=== PATIENT | female | born 1965 | race Caucasian/White ===

== ENCOUNTER 2021-05-24 16:47 | Emergency (ER) | payer BC ==
--- NOTE | 2021-05-24 20:07 | CT ---
Head CT Technique: Multiple axial sections through the brain were obtained. Intravenous contrast was not utilized. Reconstructed coronal and sagittal images were obtained. Comparison: No prior intracranial imaging is available. Findings: Ventricles along with basal cisterns and sulci over the convexities are within normal limits for the patient's age. No abnormal parenchymal densities are seen. No evidence of intracranial hemorrhage is seen. No midline shift or mass-effect is seen. Bone window settings were reviewed. Visualized paranasal sinuses and mastoid sinuses appear to be clear. No acute calvarial abnormality is appreciated. Impression: 1. Nothing acute is seen on noncontrast head CT study. Diagnostic code #1
[2021-05-24] MEDS ORDERED: predniSONE 20 MG Tab PO ONE (23:00)
--- NOTE | 2021-05-24 23:06 | EDM.PDOC ---
ED HPI GENERAL MEDICAL PROBLEM - General Chief Complaint: ENT Problem Stated Complaint: SWOLLEN RT SIDE OF FACE/EAR PAIN Time Seen by Provider: 05/24/21 22:04 Source of Information: Reports: Patient History Limitations: Reports: No Limitations - History of Present Illness INITIAL COMMENTS - FREE TEXT/NARRATIVE: The patient presents with right sided facial droop. 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 She cannot blink very well with her right eye. She also has pain to the right jaw and swelling. She has been dealing with vertigo since about February. She has been to chiropractor and antivert. She has no other symptoms such as numbness or weakness in her arms or legs. Onset: Gradual Duration: Hour(s): Location: Reports: Face Quality: Reports: Ache Severity: Mild Improves with: Reports: None Worsens with: Reports: None Associated Symptoms: Reports: No Other Symptoms right ear Pain Score (Numeric/FACES): 3 - Related Data Allergies Allergy/AdvReac Type Severity Reaction Status Date / Time Penicillins Allergy Swelling Verified 05/24/21 18:00 and rash Sulfa (Sulfonamide Allergy Rash Verified 05/24/21 18:00 Antibiotics) Home Meds: Home Meds Albuterol Sulfate [Albuterol Sulfate HFA] 2 puff INH Q4H PRN 04/15/14 [History] Aspirin [Ravi Chewable] 1 tab.chew PO QAM 04/15/14 [History] Calcium Carb/Vitamin D3/Vit K1 [Calcium + D Soft Chewable Tab] 1 tab.chew PO DAILY 04/15/14 [History] Cetirizine HCl [Zyrtec] 10 mg PO DAILY PRN 04/15/14 [History] Cholecalciferol (Vitamin D3) [Vitamin D3] 4,000 unit PO QAM 04/15/14 [History] Krill Oil/[place]-3/Dha/Epa [[place]-3 Krill Oil Softgel] 665 mg PO QAM 04/15/14 [History] Lysine 500 mg PO DAILY 04/15/14 [History] Pantoprazole Sodium 1 tab PO QAM 04/15/14 [History] Ubidecarenone [Coq-10] 200 mg PO QAM 04/15/14 [History] predniSONE [Prednisone] 60 mg PO DAILY #21 tablet 05/24/21 [Rx] Social & Family History - Tobacco Use Tobacco Use Status *Q: Never Tobacco User - Recreational Drug Use Recreational Drug Use: No ED ROS ENT - Review of Systems Review Of Systems: See Below Constitutional: Reports: No Symptoms HEENT: Reports: Other (right jaw pain and right sided facial droop) Cardiovascular: Reports: No Symptoms Endocrine: Reports: No Symptoms GI/Abdominal: Reports: No Symptoms : Reports: No Symptoms Musculoskeletal: Reports: No Symptoms ED EXAM, ENT - Physical Exam Exam: See Below Exam Limited By: No Limitations General Appearance: Alert, No Apparent Distress Ears: Normal External Exam Nose: Normal Inspection Mouth/Throat: Normal Inspection Head: Other (right sided facial droop. She cannot move her forehead either. There is some swelling of he right submandibular gland) Neck: Normal Inspection, Supple, Non-Tender Respiratory/Chest: No Respiratory Distress, Lungs Clear, Normal Breath Sounds Cardiovascular: Regular Rate, Rhythm, No Edema, No Murmur GI/Abdominal: Soft, Non-Tender, No Organomegaly, No Mass Extremities: Normal Inspection Neurological: Alert, Oriented, Other (right sided facial weakness and numbness. She can only move her right forehead slightly. She has no numbness or weakness to her arms or legs.) Course - Vital Signs Last Recorded V/S: Last Vital Signs Temp 97.6 F 05/24/21 17:56 Pulse 64 05/24/21 17:56 Resp 18 05/24/21 17:56 BP 157/81 H 05/24/21 17:56 Pulse Ox 100 05/24/21 17:56 - Orders/Labs/Meds Meds: Medications Discontinued Medications Generic Name Dose Route Start Last Admin Trade Name Ivelisse PRRodolfo Reason Stop Dose Admin Prednisone 60 mg 05/24/21 23:00 Prednisone 20 Mg Tab PO 05/24/21 23:01 ONETIME ONE - Re-Assessments/Exams Free Text/Narrative Re-Assessment/Exam: 05/24/21 23:06 The ER was very busy. A CT was done and there was no sign of bleed. 05/24/21 23:07 She has Palacios's Palsy. I will give her a dose of prednisone and a prescription for more. I will also give her an eye patch and take some lemon drops. Departure - Departure Time of Disposition: 23:10 Disposition: Home, Self-Care 01 Condition: Good Clinical Impression: Palacios's palsy, Sialolithiasis of submandibular gland - Discharge Information *PRESCRIPTION DRUG MONITORING PROGRAM REVIEWED*: Not Applicable *COPY OF PRESCRIPTION DRUG MONITORING REPORT IN PATIENT MIGUEL: Not Applicable Prescriptions: predniSONE [Prednisone] 60 mg PO DAILY #21 tablet Referrals: Sanjuana Peñaloza MD [Primary Care Provider] - 1 Week Additional Instructions: Take prednisone 60mg daily for 7 days. Wear an eye patch at night to protect your eye. Use some artificial tears to keep your eye moist. Use some tart candy or lozenges like lemon drops to help with the gland swelling. Follow up with your doctor within a week. Please return if you are worse. Sepsis Event Note (ED) - Evaluation Sepsis Screening Result: No Definite Risk - Focused Exam Vital Signs: Vital Signs Temp Pulse Resp BP Pulse Ox 05/24/21 17:56 97.6 F 64 18 157/81 H 100
== END 2021-05-24 23:38 | disposition home or self-care (01) ==
LOC: JD.ED 16:47
DX: G51.0 Bell's palsy (principal); K11.5 Sialolithiasis; Z88.0 Allergy status to penicillin; Z88.2 Allergy status to sulfonamides; Z79.82 Long term (current) use of aspirin; Z79.899 Other long term (current) drug therapy
CPT/HCPCS: 70450; 99284; J7512

== ENCOUNTER 2021-07-30 07:08 | Inpatient (IN) | payer BC ==
[2021-07-30] MEDS ORDERED: Sodium Chloride 0.9% 10 ML Syringe FLUSH PRN (07:32)
--- NOTE | 2021-07-30 07:48 | EDM.PDOC ---
ED HPI GENERAL MEDICAL PROBLEM - General Chief Complaint: Respiratory Problem Stated Complaint: COVID+ COUGH Time Seen by Provider: 07/30/21 07:26 Source of Information: Reports: Patient, RN Notes Reviewed - History of Present Illness INITIAL COMMENTS - FREE TEXT/NARRATIVE: 56 yr old female had onset sx of covid about 6 days ago. Diagnosed with a positive test 2 days ago. Worsening cough and shortness of breath yesterday and today. She has hx of asthma. She has been vaccinated, 2 doses pfizer. She has been nauseated, no appetite. Has some uncomfortable "sores" R upper mouth. - Related Data Allergies Allergy/AdvReac Type Severity Reaction Status Date / Time Penicillins Allergy Swelling Verified 07/30/21 07:30 and rash Sulfa (Sulfonamide Allergy Rash Verified 07/30/21 07:30 Antibiotics) Home Meds: Home Meds Albuterol Sulfate [Albuterol Sulfate HFA] 2 puff INH Q4H PRN 04/15/14 [History] Aspirin [Ravi Chewable] 1 tab.chew PO QAM 04/15/14 [History] Calcium Carb/Vitamin D3/Vit K1 [Calcium + D Soft Chewable Tab] 1 tab.chew PO DAILY 04/15/14 [History] Cetirizine HCl [Zyrtec] 10 mg PO DAILY PRN 04/15/14 [History] Cholecalciferol (Vitamin D3) [Vitamin D3] 4,000 unit PO QAM 04/15/14 [History] Krill Oil/[place]-3/Dha/Epa [[place]-3 Krill Oil Softgel] 665 mg PO QAM 04/15/14 [History] Lysine 500 mg PO DAILY 04/15/14 [History] Pantoprazole Sodium 1 tab PO QAM 04/15/14 [History] Ubidecarenone [Coq-10] 200 mg PO QAM 04/15/14 [History] Escitalopram [Lexapro] 20 mg PO DAILY 07/30/21 [History] Past Medical History Respiratory History: Reports: Asthma - Infectious Disease History Infectious Disease History: Reports: Novel Coronavirus Social & Family History - Tobacco Use Tobacco Use Status *Q: Never Tobacco User - Recreational Drug Use Recreational Drug Use: No ED ROS GENERAL - Review of Systems Review Of Systems: See Below Constitutional: Reports: Chills. Denies: Fever HEENT: Reports: Other (uncomfortable lessions R upper mouth) Cardiovascular: Denies: Chest Pain Endocrine: Reports: Fatigue GI/Abdominal: Reports: Decreased Appetite, Nausea. Denies: Vomiting Musculoskeletal: Reports: Other (generalized achiness) Skin: Denies: Rash Neurological: Reports: Dizziness, Headache ED EXAM, GENERAL - Physical Exam Exam: See Below General Appearance: Alert, Mild Distress Throat/Mouth: Other (a few red punctate lesions lateral to R upper gum) Head: No: Facial Swelling Neck: Supple Respiratory/Chest: Respiratory Distress (miid tachypnea), Rhonchi (bilat) Cardiovascular: Regular Rate, Rhythm GI/Abdominal: Non-Tender Extremities: No: Pedal Edema, Leg Pain, Increased Warmth, Redness Neurological: Alert, Oriented, No Motor/Sensory Deficits Skin Exam: Warm, Dry, Normal Color, No Rash #1 Interpretation EKG Date: 07/30/21 Rhythm: NSR [place]: Normal P-Wave: Present QRS: Other (q waves lead III) ST-T: Normal QT: Normal Course - Vital Signs Last Recorded V/S: Last Vital Signs Temp 97.7 F 07/30/21 07:22 Pulse 89 07/30/21 07:22 Resp 18 07/30/21 07:22 BP 145/71 H 07/30/21 07:22 Pulse Ox 85 L 07/30/21 07:22 - Orders/Labs/Meds Orders: Active Orders 24 hr Category Date Time Status Peripheral IV Care [RC] . DIRECTED Care 07/30/21 07:33 Active Chest PE [Ang Chest] [CT] Stat Exams 07/30/21 09:07 Stop Req Sodium Chloride 0.9% [Normal Saline] 1,000 ml Med 07/30/21 09:15 Active IV ONETIME Sodium Chloride 0.9% [Saline Flush] Med 07/30/21 07:32 Active 10 ml FLUSH ASDIRECTED PRN Peripheral IV Insertion Adult [OM.PC] Stat Oth 07/30/21 07:33 Ordered Medication Orders Sodium Chloride (Normal Saline) 1,000 mls @ 999 mls/hr IV ONETIME RAVINDER Last Admin: 07/30/21 09:34 Dose: 999 mls/hr Documented by: MEGAN Sodium Chloride (Sodium Chloride 0.9% 10 Ml Syringe) 10 ml FLUSH ASDIRECTED PRN PRN Reason: Keep Vein Open Last Admin: 07/30/21 07:47 Dose: 10 ml Documented by: MEGAN Labs: Laboratory Tests 07/30/21 07/30/21 07/30/21 Range/Units 07:47 07:47 07:47 WBC 4.30 (3.98-10.04) K/mm3 RBC 4.44 (3.98-5.22) M/mm3 Hgb 12.1 (11.2-15.7) gm/dl Hct 37.7 (34.1-44.9) % MCV 84.9 (79.4-94.8) fl MCH 27.3 (25.6-32.2) pg MCHC 32.1 L (32.2-35.5) g/dl RDW Std Deviation 43.7 (36.4-46.3) fL Plt Count 171 L D (182-369) K/mm3 MPV 9.3 L (9.4-12.3) fl Neut % (Auto) 80.7 H (34.0-71.1) % Lymph % (Auto) 11.9 L (19.3-51.7) % [place] % (Auto) 7.0 (4.7-12.5) % Eos % (Auto) 0 L (0.7-5.8) Baso % (Auto) 0.2 (0.1-1.2) % Neut # (Auto) 3.47 (1.56-6.13) K/mm3 Lymph # (Auto) 0.51 L (1.18-3.74) K/mm3 [place] # (Auto) 0.30 (0.24-0.36) K/mm3 Eos # (Auto) 0.00 L (0.04-0.36) K/mm3 Baso # (Auto) 0.01 (0.01-0.08) K/mm3 D-Dimer, Quantitative (0.19-0.50) mg/L Puncture Site ABG pH (7.35-7.45) ABG pCO2 (35.0-45.0) mmHg ABG pO2 (80.0-100.0) mmHg ABG HCO3 (22.0-26.0) meq/L ABG O2 Saturation (96.0-97.0) % ABG Base Excess (-2-2.0) Raffy Test A-a Gradient mmHg O2 Delivery Device FiO2 (21.00-100.00) % Sodium 135 L (136-145) mEq/L Potassium 3.3 L (3.5-5.1) mEq/L Chloride 96 L (98-107) mEq/L Carbon Dioxide 31 (21-32) mEq/L Anion Gap 11.3 (5-15) BUN 5 L (7-18) mg/dL Creatinine 0.8 (0.55-1.02) mg/dL Est Cr Clr Drug Dosing 71.76 mL/min Estimated GFR (MDRD) > 60 (>60) mL/min BUN/Creatinine Ratio 6.3 L (14-18) Glucose 147 H (70-99) mg/dL Calcium 8.0 L (8.5-10.1) mg/dL Total Bilirubin 0.7 (0.2-1.0) mg/dL AST 73 H (15-37) U/L ALT 59 (14-59) U/L Alkaline Phosphatase 81 (46-116) U/L C-Reactive Protein 16.4 H* (<1.0) mg/dL Total Protein 6.4 (6.4-8.2) g/dl Albumin 2.8 L (3.4-5.0) g/dl Globulin 3.6 gm/dL Albumin/Globulin Ratio 0.8 L (1-2) 07/30/21 07/30/21 Range/Units 07:47 08:45 WBC (3.98-10.04) K/mm3 RBC (3.98-5.22) M/mm3 Hgb (11.2-15.7) gm/dl Hct (34.1-44.9) % MCV (79.4-94.8) fl MCH (25.6-32.2) pg MCHC (32.2-35.5) g/dl RDW Std Deviation (36.4-46.3) fL Plt Count (182-369) K/mm3 MPV (9.4-12.3) fl Neut % (Auto) (34.0-71.1) % Lymph % (Auto) (19.3-51.7) % [place] % (Auto) (4.7-12.5) % Eos % (Auto) (0.7-5.8) Baso % (Auto) (0.1-1.2) % Neut # (Auto) (1.56-6.13) K/mm3 Lymph # (Auto) (1.18-3.74) K/mm3 [place] # (Auto) (0.24-0.36) K/mm3 Eos # (Auto) (0.04-0.36) K/mm3 Baso # (Auto) (0.01-0.08) K/mm3 D-Dimer, Quantitative 1.76 H (0.19-0.50) mg/L Puncture Site Rt radial ABG pH 7.46 H (7.35-7.45) ABG pCO2 43.1 (35.0-45.0) mmHg ABG pO2 56.0 L (80.0-100.0) mmHg ABG HCO3 30.1 H (22.0-26.0) meq/L ABG O2 Saturation 90.6 L (96.0-97.0) % ABG Base Excess 6.0 H (-2-2.0) Raffy Test Positive A-a Gradient 40 mmHg O2 Delivery Device Room air FiO2 21.00 (21.00-100.00) % Sodium (136-145) mEq/L Potassium (3.5-5.1) mEq/L Chloride (98-107) mEq/L Carbon Dioxide (21-32) mEq/L Anion Gap (5-15) BUN (7-18) mg/dL Creatinine (0.55-1.02) mg/dL Est Cr Clr Drug Dosing mL/min Estimated GFR (MDRD) (>60) mL/min BUN/Creatinine Ratio (14-18) Glucose (70-99) mg/dL Calcium (8.5-10.1) mg/dL Total Bilirubin (0.2-1.0) mg/dL AST (15-37) U/L ALT (14-59) U/L Alkaline Phosphatase (46-116) U/L C-Reactive Protein (<1.0) mg/dL Total Protein (6.4-8.2) g/dl Albumin (3.4-5.0) g/dl Globulin gm/dL Albumin/Globulin Ratio (1-2) Meds: Medications Generic Name Dose Route Start Last Admin Trade Name Freq PRN Reason Stop Dose Admin Sodium Chloride 1,000 mls @ 999 mls/hr 07/30/21 09:15 07/30/21 09:34 Normal Saline IV 999 mls/hr ONETIME RAVINDER Administration Sodium Chloride 10 ml 07/30/21 07:32 07/30/21 07:47 Sodium Chloride 0.9% 10 Ml Syringe FLUSH 10 ml ASDIRECTED PRN Administration Keep Vein Open Discontinued Medications Generic Name Dose Route Start Last Admin Trade Name Freq PRN Reason Stop Dose Admin Ondansetron HCl 4 mg 07/30/21 07:49 Ondansetron 4 Mg/2 Ml Sdv IVPUSH 07/30/21 07:50 ONETIME ONE Ondansetron HCl 4 mg 07/30/21 07:54 07/30/21 07:58 Ondansetron 4 Mg Tab.Dis PO 07/30/21 07:55 4 mg ONETIME ONE Administration - Re-Assessments/Exams Free Text/Narrative Re-Assessment/Exam: 07/30/21 09:12 CXR does show bilat covid pneumonia. ABG's room air po2 56, 7.46, 43.1, 30.1. WBC 4,300, CRP 16.4, D dimer 1.7. 07/30/21 09:14 With elevated d dimer will check CTPA. Departure - Departure Time of Disposition: 09:42 Disposition: Admitted As Inpatient 64 Condition: Serious Clinical Impression: Pneumonia due to COVID-19 virus, Hypoxia - Discharge Information Referrals: Sanjuana Peñaloza MD [Primary Care Provider] - Forms: ED Department Discharge Sepsis Event Note (ED) - Evaluation Sepsis Screening Result: No Definite Risk - Focused Exam Vital Signs: Vital Signs Temp Pulse Resp BP Pulse Ox 07/30/21 07:22 97.7 F 89 18 145/71 H 85 L ED Communication - Discussed Case With (1) Discussed Case With (1): Admitting Provider (decison to admit at about 09:50) - My Orders Last 24 Hours: My Active Orders 07/30/21 07:32 Sodium Chloride 0.9% [Saline Flush] 10 ml FLUSH ASDIRECTED PRN 07/30/21 07:33 Peripheral IV Care [RC] . DIRECTED Peripheral IV Insertion Adult [OM.PC] Stat 07/30/21 09:07 Chest PE [Ang Chest] [CT] Stat 07/30/21 09:15 Sodium Chloride 0.9% [Normal Saline] 1,000 ml IV ONETIME - Assessment/Plan Last 24 Hours: My Active Orders 07/30/21 07:32 Sodium Chloride 0.9% [Saline Flush] 10 ml FLUSH ASDIRECTED PRN 07/30/21 07:33 Peripheral IV Care [RC] . DIRECTED Peripheral IV Insertion Adult [OM.PC] Stat 07/30/21 09:07 Chest PE [Ang Chest] [CT] Stat 07/30/21 09:15 Sodium Chloride 0.9% [Normal Saline] 1,000 ml IV ONETIME
[2021-07-30] MEDS ORDERED: Ondansetron 4 MG/2 ML SDV IVPUSH ONE (07:49)
[2021-07-30] MEDS ORDERED: Ondansetron 4 MG Tab.DIS PO ONE (07:54)
--- NOTE | 2021-07-30 08:01 | CR ---
Chest: Portable view of the chest was obtained. Comparison: No prior chest imaging is available. Heart size and mediastinum are normal. Patchy areas of increased density are seen on both sides of the chest. Old healed left clavicle fracture appears to be present. Minimal scoliosis is noted within the spine. Impression: 1. Scattered areas of increased density are seen on both sides of the chest. Findings are suspicious for COVID pneumonia. Please correlate. 2. Other findings which are believed to be chronic. Diagnostic code #3
[2021-07-30] MEDS ORDERED: Sodium Chloride 0.9% 1,000 ML IV SCH (09:15)
[2021-07-30] MEDS ORDERED: REMDESIVIR 200 MG in Sodium Chloride 0.9% 250 ML IV ONE ×2 (11:57→15:00)
[2021-07-30] MEDS ORDERED: Albuterol 0.083% 2.5 MG/3 ML Neb Soln NEB PRN (11:57)
[2021-07-30] MEDS ORDERED: Albuterol/Ipratropium 3.0-0.5 MG/3 ML Neb Soln NEB PRN (11:57)
[2021-07-30] MEDS ORDERED: Ondansetron 4 MG/2 ML SDV IV PRN (11:57)
[2021-07-30] MEDS: Acetaminophen 325 MG Tab PO PRN (14:30)
[2021-07-30] MEDS ORDERED: Potassium Chloride 20 MEQ Tab.ER PO ONE (15:14)
[2021-07-30] MEDS ORDERED: Cetirizine 10 MG Tab PO PRN (15:14)
[2021-07-30] MEDS ORDERED: Albuterol 6.7 GM Inhaler INH PRN (15:14)
[2021-07-30] MEDS: Dexamethasone 4 MG Tab PO SCH (15:23)
--- NOTE | 2021-07-30 16:53 | PCM.HP.2 ---
H&P History of Present Illness - General Date of Service: 07/30/21 Admit Problem/Dx: Admission Diagnosis/Problem Admission Diagnosis/Problem Hypoxia - History of Present Illness Initial Comments - Free Text/Narative: 56-year-old female with history of asthma presents to the emergency department with 5-day history of fatigue, chills, and 3-day history of shortness of breath. Patient was vaccinated against COVID-19 with Pfizer vaccine in November and December of this year. Patient for started feeling muscle aches last Saturday, July 23 and then by Saturday she started feeling chills, without fever, fatigue and wo rsening achiness. Patient comes in today for worsening cough and shortness of breath. In the emergency department her oxygen saturations were 85% on room air. This did increase with 2 L nasal cannula. Patient was then recommended for admission. 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 - Related Data Allergies/Adverse Reactions: Allergies Allergy/AdvReac Type Severity Reaction Status Date / Time Penicillins Allergy Swelling Verified 07/30/21 07:30 and rash Sulfa (Sulfonamide Allergy Rash Verified 07/30/21 07:30 Antibiotics) Home Medications: Home Meds Albuterol Sulfate [Albuterol Sulfate HFA] 2 puff INH Q4H PRN 04/15/14 [History] Aspirin [Ravi Chewable] 1 tab.chew PO QAM 04/15/14 [History] Calcium Carb/Vitamin D3/Vit K1 [Calcium + D Soft Chewable Tab] 1 tab.chew PO DAILY 04/15/14 [History] Cetirizine HCl [Zyrtec] 10 mg PO DAILY PRN 04/15/14 [History] Cholecalciferol (Vitamin D3) [Vitamin D3] 4,000 unit PO QAM 04/15/14 [History] Krill Oil/[place]-3/Dha/Epa [[place]-3 Krill Oil Softgel] 665 mg PO QAM 04/15/14 [History] Lysine 500 mg PO PRN 04/15/14 [History] Pantoprazole Sodium 1 tab PO QAM 04/15/14 [History] Ubidecarenone [Coq-10] 200 mg PO QAM 04/15/14 [History] Escitalopram [Lexapro] 20 mg PO DAILY 07/30/21 [History] Past Medical History - Past Health History Medical/Surgical History: Denies Medical/Surgical History Respiratory History: Reports: Asthma Gastrointestinal History: Reports: GERD Neurological History: Reports: None Endocrine/Metabolic History: Reports: Obesity/BMI 30+, Vitamin D Deficiency - Infectious Disease History Infectious Disease History: Reports: Novel Coronavirus - Past Surgical History GI Surgical History: Reports: None Endocrine Surgical History: Reports: None Neurological Surgical History: Reports: None Social & Family History - Family History Family Medical History: No Pertinent Family History - Tobacco Use Tobacco Use Status *Q: Never Tobacco User Second Hand Smoke Exposure: Yes - Caffeine Use Caffeine Use: Reports: Coffee Caffeine Use Comment: 1 cup/day - Recreational Drug Use Recreational Drug Use: No H&P Review of Systems - Review of Systems: Review Of Systems: Comprehensive ROS is negative, except as noted in HPI. Exam - Exam Exam: See Below - Vital Signs Vital Signs: Last Vital Signs Temp 97.2 F 07/30/21 15:55 Pulse 81 07/30/21 15:55 Resp 16 07/30/21 15:55 BP 133/64 07/30/21 15:55 Pulse Ox 92 L 07/30/21 15:55 Weight: 221 lb 11.2 oz - Exam Quality Assessment: Supplemental Oxygen General: Alert, Oriented, 4 HEENT: Conjunctiva Clear, EACs Clear, EOMI, Hearing Intact, Mucosa Moist & [place]: Supple, Trachea Midline, 2 Lungs: Normal Respiratory Effort, Crackles (Bibasilar up to mid lung jones) Cardiovascular: Regular Rate, Regular Rhythm GI/Abdominal Exam: Normal Bowel Sounds, Soft, Non-Tender, No Organomegaly, No Distention, No Abnormal Bruit, No Mass Extremities: Normal Inspection, Normal Range of Motion, Non-Tender, No Pedal Edema, Normal Capillary Refill Skin: Warm, Dry, Intact Neurological: No: Cranial Nerves Intact (Minimal right-sided facial droop) Neuro Extensive - Mental Status: Alert, Oriented x3, Normal Mood/Affect, Normal Cognition, Memory Intact Psychiatric: Alert, Normal Affect, Normal Mood - Patient Data Lab Results Last 24 hrs: Laboratory Results - last 24 hr 07/30/21 07/30/21 07/30/21 Range/Units 07:47 07:47 07:47 WBC 4.30 (3.98-10.04) K/mm3 RBC 4.44 (3.98-5.22) M/mm3 Hgb 12.1 (11.2-15.7) gm/dl Hct 37.7 (34.1-44.9) % MCV 84.9 (79.4-94.8) fl MCH 27.3 (25.6-32.2) pg MCHC 32.1 L (32.2-35.5) g/dl RDW Std Deviation 43.7 (36.4-46.3) fL Plt Count 171 L D (182-369) K/mm3 MPV 9.3 L (9.4-12.3) fl Neut % (Auto) 80.7 H (34.0-71.1) % Lymph % (Auto) 11.9 L (19.3-51.7) % [place] % (Auto) 7.0 (4.7-12.5) % Eos % (Auto) 0 L (0.7-5.8) Baso % (Auto) 0.2 (0.1-1.2) % Neut # (Auto) 3.47 (1.56-6.13) K/mm3 Lymph # (Auto) 0.51 L (1.18-3.74) K/mm3 [place] # (Auto) 0.30 (0.24-0.36) K/mm3 Eos # (Auto) 0.00 L (0.04-0.36) K/mm3 Baso # (Auto) 0.01 (0.01-0.08) K/mm3 D-Dimer, Quantitative (0.19-0.50) mg/L Puncture Site ABG pH (7.35-7.45) ABG pCO2 (35.0-45.0) mmHg ABG pO2 (80.0-100.0) mmHg ABG HCO3 (22.0-26.0) meq/L ABG O2 Saturation (96.0-97.0) % ABG Base Excess (-2-2.0) Raffy Test A-a Gradient mmHg O2 Delivery Device FiO2 (21.00-100.00) % Sodium 135 L (136-145) mEq/L Potassium 3.3 L (3.5-5.1) mEq/L Chloride 96 L (98-107) mEq/L Carbon Dioxide 31 (21-32) mEq/L Anion Gap 11.3 (5-15) BUN 5 L (7-18) mg/dL Creatinine 0.8 (0.55-1.02) mg/dL Est Cr Clr Drug Dosing 71.76 mL/min Estimated GFR (MDRD) > 60 (>60) mL/min BUN/Creatinine Ratio 6.3 L (14-18) Glucose 147 H (70-99) mg/dL Calcium 8.0 L (8.5-10.1) mg/dL Total Bilirubin 0.7 (0.2-1.0) mg/dL AST 73 H (15-37) U/L ALT 59 (14-59) U/L Alkaline Phosphatase 81 (46-116) U/L C-Reactive Protein 16.4 H* (<1.0) mg/dL Total Protein 6.4 (6.4-8.2) g/dl Albumin 2.8 L (3.4-5.0) g/dl Globulin 3.6 gm/dL Albumin/Globulin Ratio 0.8 L (1-2) 07/30/21 07/30/21 Range/Units 07:47 08:45 WBC (3.98-10.04) K/mm3 RBC (3.98-5.22) M/mm3 Hgb (11.2-15.7) gm/dl Hct (34.1-44.9) % MCV (79.4-94.8) fl MCH (25.6-32.2) pg MCHC (32.2-35.5) g/dl RDW Std Deviation (36.4-46.3) fL Plt Count (182-369) K/mm3 MPV (9.4-12.3) fl Neut % (Auto) (34.0-71.1) % Lymph % (Auto) (19.3-51.7) % [place] % (Auto) (4.7-12.5) % Eos % (Auto) (0.7-5.8) Baso % (Auto) (0.1-1.2) % Neut # (Auto) (1.56-6.13) K/mm3 Lymph # (Auto) (1.18-3.74) K/mm3 [place] # (Auto) (0.24-0.36) K/mm3 Eos # (Auto) (0.04-0.36) K/mm3 Baso # (Auto) (0.01-0.08) K/mm3 D-Dimer, Quantitative 1.76 H (0.19-0.50) mg/L Puncture Site Rt radial ABG pH 7.46 H (7.35-7.45) ABG pCO2 43.1 (35.0-45.0) mmHg ABG pO2 56.0 L (80.0-100.0) mmHg ABG HCO3 30.1 H (22.0-26.0) meq/L ABG O2 Saturation 90.6 L (96.0-97.0) % ABG Base Excess 6.0 H (-2-2.0) Raffy Test Positive A-a Gradient 40 mmHg O2 Delivery Device Room air FiO2 21.00 (21.00-100.00) % Sodium (136-145) mEq/L Potassium (3.5-5.1) mEq/L Chloride (98-107) mEq/L Carbon Dioxide (21-32) mEq/L Anion Gap (5-15) BUN (7-18) mg/dL Creatinine (0.55-1.02) mg/dL Est Cr Clr Drug Dosing mL/min Estimated GFR (MDRD) (>60) mL/min BUN/Creatinine Ratio (14-18) Glucose (70-99) mg/dL Calcium (8.5-10.1) mg/dL Total Bilirubin (0.2-1.0) mg/dL AST (15-37) U/L ALT (14-59) U/L Alkaline Phosphatase (46-116) U/L C-Reactive Protein (<1.0) mg/dL Total Protein (6.4-8.2) g/dl Albumin (3.4-5.0) g/dl Globulin gm/dL Albumin/Globulin Ratio (1-2) Result Diagrams: 07/30/21 07:47 07/30/21 07:47 Imaging Impressions Last 24 hrs: Chest x-ray: Scattered areas of increased density are seen on both sides of the chest. Findings are suspicious for COVID-19. Sepsis Event Note - Evaluation Sepsis Screening Result: No Definite Risk - Focused Exam Vital Signs: Vital Signs Temp Temp Pulse Pulse Resp BP BP 07/30/21 15:55 97.2 F 81 16 133/64 07/30/21 15:51 07/30/21 13:39 07/30/21 12:29 07/30/21 10:51 81 16 114/53 L 07/30/21 07:22 97.7 F 89 18 145/71 H Pulse Ox Pulse Ox 07/30/21 15:55 92 L 07/30/21 15:51 92 L 07/30/21 13:39 90 L 07/30/21 12:29 95 07/30/21 10:51 96 07/30/21 07:22 85 L - Problem List (1) Hypoxia SNOMED Code(s): 965053235 ICD Code: R09.02 - HYPOXEMIA Status: Acute Current Visit: Yes (2) Pneumonia due to COVID-19 virus SNOMED Code(s): 538355083101542243 ICD Code: U07.1 - COVID-19; J12.82 - PNEUMONIA DUE TO CORONAVIRUS DISEASE 2019 Status: Acute Current Visit: Yes Problem List Initiated/Reviewed/Updated: Yes Orders Last 24hrs: Active Orders 24 hr Category Date Time Status Admission Status [Patient Status] [ADT] Routine ADT 07/30/21 10:06 Active Incentive Spirometry [RT Incentive Spirometry] [RC] Care 07/30/21 12:05 Active ASDIRECTED Oxygen Therapy [RC] PRN Care 07/30/21 11:57 Active Positioning, Patient [RC] Care 07/30/21 11:59 Active RT Aerosol Therapy [RC] ASDIRECTED Care 07/30/21 11:59 Active RT Post Treatment Assessment [RC] Click to Edit Care 07/30/21 15:15 Active RT Pre-Treatment Assessment [RC] Click to Edit Care 07/30/21 15:15 Active Up With Assistance [RC] Care 07/30/21 11:57 Active VTE/DVT Education [RC] PER UNIT ROUTINE Care 07/30/21 11:57 Active Vital Signs [RC] Q4H Care 07/30/21 11:57 Active Regular Diet [DIET] Diet 07/30/21 Lunch Active C-REACTIVE PROTEIN [CHEM] AM Lab 07/31/21 05:11 Ordered CBC WITH AUTO DIFF [HEME] AM Lab 07/31/21 05:11 Ordered CMP [COMPREHENSIVE METABOLIC PN,CMP] [CHEM] AM Lab 07/31/21 05:11 Ordered DD [D-DIMER QUANTITATIVE] [COAG] AM Lab 07/31/21 05:11 Ordered MAGNESIUM [CHEM] AM Lab 07/31/21 05:11 Ordered PHOSPHORUS [CHEM] AM Lab 07/31/21 05:11 Ordered Acetaminophen [TylenoL] Med 07/30/21 11:57 Active 650 mg PO Q4H PRN Albuterol [Proventil HFA] Med 07/30/21 15:14 Active 0 gm INH Q4H PRN Albuterol [Proventil Neb Soln] Med 07/30/21 11:57 Active 2.5 mg NEB Q2H PRN Albuterol/Ipratropium [DuoNeb 3.0-0.5 MG/3 ML] Med 07/30/21 11:57 Active 3 ml NEB Q4H PRN Aspirin [Halfprin] Med 07/31/21 08:00 Active 81 mg PO QAM Cetirizine [ZyrTEC] Med 07/30/21 15:14 Active 10 mg PO DAILY PRN Citalopram [Celexa] Med 07/31/21 09:00 Active 40 mg PO DAILY Enoxaparin [Lovenox] Med 07/31/21 09:00 Active 40 mg SUBCUT DAILY Ondansetron [Zofran] Med 07/30/21 11:57 Active 4 mg IV Q6H PRN Pantoprazole [ProTONIX] Med 07/31/21 06:00 Active 40 mg PO ACBREAKFAST Remdesivir 100 mg Med 07/31/21 12:00 Active Sodium Chloride 0.9% [Normal Saline] 100 ml IV Q24H Sodium Chloride 0.9% [Normal Saline] 1,000 ml Med 07/30/21 09:15 Active IV ONETIME Sodium Chloride 0.9% [Saline Flush] Med 07/30/21 07:32 Active 10 ml FLUSH ASDIRECTED PRN dexAMETHasone Med 07/30/21 12:00 Active 6 mg PO DAILY Isolation [COMM] Stat Oth 07/30/21 11:57 Ordered Peripheral IV Insertion Adult [OM.PC] Stat Oth 07/30/21 07:33 Ordered Resuscitation Status Routine Resus Stat 07/30/21 11:57 Ordered Medication Orders Acetaminophen (Acetaminophen 325 Mg Tab) 650 mg PO Q4H PRN PRN Reason: Pain (Mild 1-3)/fever Last Admin: 07/30/21 14:30 Dose: 650 mg Documented by: DEANGELO Albuterol (Albuterol 0.083% 2.5 Mg/3 Ml Neb Soln) 2.5 mg NEB Q2H PRN PRN Reason: Shortness Of Breath/wheezing Albuterol (Albuterol 6.7 Gm Inhaler) 0 gm INH Q4H PRN PRN Reason: Shortness of Breath Albuterol/Ipratropium (Albuterol/Ipratropium 3.0-0.5 Mg/3 Ml Neb Soln) 3 ml NEB Q4H PRN PRN Reason: Shortness Of Breath/wheezing Aspirin (Aspirin 81 Mg Tab.Ec) 81 mg PO QAM [facility] Cetirizine HCl (Cetirizine 10 Mg Tab) 10 mg PO DAILY PRN PRN Reason: Allergies Citalopram Hydrobromide (Citalopram 20 Mg Tab) 40 mg PO DAILY [facility] Dexamethasone (Dexamethasone 4 Mg Tab) 6 mg PO DAILY [facility] Stop: 08/08/21 09:01 Last Admin: 07/30/21 15:23 Dose: 6 mg Documented by: BUBBA Enoxaparin Sodium (Enoxaparin 40 Mg/0.4 Ml Syringe) 40 mg SUBCUT DAILY [facility] Sodium Chloride (Normal Saline) 1,000 mls @ 999 mls/hr IV ONETIME [facility] Last Admin: 07/30/21 09:34 Dose: 999 mls/hr Documented by: MEGAN Remdesivir 100 mg/ Sodium (Chloride) 100 mls @ 100 mls/hr IV Q24H [facility] Stop: 08/03/21 12:59 Ondansetron HCl (Ondansetron 4 Mg/2 Ml Sdv) 4 mg IV Q6H PRN PRN Reason: Nausea/Vomiting Pantoprazole Sodium (Pantoprazole 40 Mg Tab.Cr) 40 mg PO ACBREAKFAST [facility] Sodium Chloride (Sodium Chloride 0.9% 10 Ml Syringe) 10 ml FLUSH ASDIRECTED PRN PRN Reason: Keep Vein Open Last Admin: 07/30/21 07:47 Dose: 10 ml Documented by: MEGAN Assessment/Plan Comment:: 56-year-old female with history of asthma admitted for COVID-19 pneumonia. Patient was fully vaccinated with Pfizer vaccine in November and December. COVID-19 pneumonia Hypoxemia History of asthma treated with albuterol as needed * Patient requiring approximately 1 L nasal cannula when arrived on the floor. * White blood cell count 4.3 with 80% neutrophils. CRP 16.4. * D-dimer 1.76 * ABG pH 7.46 with PO2 of 56 on room air * Mild to moderate COVID-19 Hypokalemia * Potassium 3.3 Transaminitis with AST of 73 Plan * Admit to medical floor * FiO2 to keep SPO2 between 88 and 94% * Start remdesivir and dexamethasone * Typical COVID-19 treatment protocol; I-S, Acapella, prone, breathing treatments, etc. * Follow CBC, CMP, mag, CRP and occasional D-dimer * VTE prophylaxis with Lovenox * CODE STATUS: Full code - Mortality Measure Prognosis:: Good
[2021-07-31] MEDS: Pantoprazole 40 MG Tab.CR PO SCH (06:36)
[2021-07-31] MEDS: Enoxaparin 40 MG/0.4 ML Syringe SUBCUT SCH (09:00)
[2021-07-31] MEDS: Aspirin 81 MG Tab.EC PO SCH (09:05)
[2021-07-31] MEDS: Dexamethasone 4 MG Tab PO SCH (09:05)
[2021-07-31] MEDS: Citalopram 20 MG Tab PO SCH (09:05)
--- NOTE | 2021-07-31 09:59 | PCM.PN ---
- General Info Date of Service: 07/31/21 Admission Dx/Problem (Free Text): Admission Diagnosis/Problem Admission Diagnosis/Problem Hypoxia Subjective Update: No acute events overnight. No new nursing concerns. Patient denies any chest pain, chest pressure or pleurisy. Has ongoing occasional cough but without sputum production. No hemoptysis. No reported fever. Tolerating food and drink without complication. No abdominal pain or dysuria. Mild myalgias reported. Some difficulties with swallowing if she is experiencing GERD symptoms. Functional Status: Reports: Tolerating Diet, Ambulating - Patient Data Vitals - Most Recent: Last Vital Signs Temp 98.4 F 07/31/21 05:02 Pulse 71 07/31/21 08:49 Resp 20 07/31/21 08:49 BP 116/63 07/31/21 08:49 Pulse Ox 90 L 07/31/21 08:49 Weight - Most Recent: 222 lb 1.6 oz I&O - Last 24 Hours: Intake & Output 07/30/21 07/31/21 07/31/21 22:59 06:59 14:59 Intake Total 850 350 Output Total 400 500 Balance 450 -150 Lab Results Last 24 Hours: Laboratory Results - last 24 hr 07/31/21 07/31/21 07/31/21 Range/Units 05:45 05:45 05:45 WBC 2.83 L (3.98-10.04) K/mm3 RBC 4.57 (3.98-5.22) M/mm3 Hgb 12.4 (11.2-15.7) gm/dl Hct 38.9 (34.1-44.9) % MCV 85.1 (79.4-94.8) fl MCH 27.1 (25.6-32.2) pg MCHC 31.9 L (32.2-35.5) g/dl RDW Std Deviation 44.8 (36.4-46.3) fL Plt Count 187 (182-369) K/mm3 MPV 9.5 (9.4-12.3) fl Neut % (Auto) 76.6 H (34.0-71.1) % Lymph % (Auto) 13.8 L (19.3-51.7) % [place] % (Auto) 8.5 (4.7-12.5) % Eos % (Auto) 0 L (0.7-5.8) Baso % (Auto) 0.4 (0.1-1.2) % Neut # (Auto) 2.17 (1.56-6.13) K/mm3 Lymph # (Auto) 0.39 L (1.18-3.74) K/mm3 [place] # (Auto) 0.24 (0.24-0.36) K/mm3 Eos # (Auto) 0.00 L (0.04-0.36) K/mm3 Baso # (Auto) 0.01 (0.01-0.08) K/mm3 D-Dimer, Quantitative 1.05 H (0.19-0.50) mg/L Sodium 140 (136-145) mEq/L Potassium 4.3 (3.5-5.1) mEq/L Chloride 102 (98-107) mEq/L Carbon Dioxide 28 (21-32) mEq/L Anion Gap 14.3 (5-15) BUN 9 (7-18) mg/dL Creatinine 0.7 (0.55-1.02) mg/dL Est Cr Clr Drug Dosing 82.01 mL/min Estimated GFR (MDRD) > 60 (>60) mL/min BUN/Creatinine Ratio 12.9 L (14-18) Glucose 155 H (70-99) mg/dL Calcium 8.2 L (8.5-10.1) mg/dL Phosphorus 2.9 (2.6-4.7) mg/dL Magnesium 2.0 (1.8-2.4) mg/dL Total Bilirubin 0.6 (0.2-1.0) mg/dL AST 40 H (15-37) U/L ALT 52 (14-59) U/L Alkaline Phosphatase 83 (46-116) U/L C-Reactive Protein 16.7 H* (<1.0) mg/dL Total Protein 5.9 L (6.4-8.2) g/dl Albumin 2.8 L (3.4-5.0) g/dl Globulin 3.1 gm/dL Albumin/Globulin Ratio 0.9 L (1-2) Med Orders - Current: Current Medications Acetaminophen (Acetaminophen 325 Mg Tab) 650 mg PO Q4H PRN PRN Reason: Pain (Mild 1-3)/fever Last Admin: 07/30/21 14:30 Dose: 650 mg Documented by: Albuterol (Albuterol 0.083% 2.5 Mg/3 Ml Neb Soln) 2.5 mg NEB Q2H PRN PRN Reason: Shortness Of Breath/wheezing Albuterol (Albuterol 6.7 Gm Inhaler) 0 gm INH Q4H PRN PRN Reason: Shortness of Breath Albuterol/Ipratropium (Albuterol/Ipratropium 3.0-0.5 Mg/3 Ml Neb Soln) 3 ml NEB Q4H PRN PRN Reason: Shortness Of Breath/wheezing Aspirin (Aspirin 81 Mg Tab.Ec) 81 mg PO QAM [facility] Last Admin: 07/31/21 09:05 Dose: 81 mg Documented by: Cetirizine HCl (Cetirizine 10 Mg Tab) 10 mg PO DAILY PRN PRN Reason: Allergies Citalopram Hydrobromide (Citalopram 20 Mg Tab) 40 mg PO DAILY [facility] Last Admin: 07/31/21 09:05 Dose: 40 mg Documented by: Dexamethasone (Dexamethasone 4 Mg Tab) 6 mg PO DAILY [facility] Stop: 08/08/21 09:01 Last Admin: 07/31/21 09:05 Dose: 6 mg Documented by: Enoxaparin Sodium (Enoxaparin 40 Mg/0.4 Ml Syringe) 40 mg SUBCUT DAILY [facility] Last Admin: 07/31/21 09:00 Dose: 40 mg Documented by: Sodium Chloride (Normal Saline) 1,000 mls @ 999 mls/hr IV ONETIME [facility] Last Admin: 07/30/21 09:34 Dose: 999 mls/hr Documented by: Remdesivir 100 mg/ Sodium (Chloride) 100 mls @ 100 mls/hr IV Q24H [facility] Stop: 08/03/21 12:59 Ondansetron HCl (Ondansetron 4 Mg/2 Ml Sdv) 4 mg IV Q6H PRN PRN Reason: Nausea/Vomiting Pantoprazole Sodium (Pantoprazole 40 Mg Tab.Cr) 40 mg PO ACBREAKFAST [facility] Last Admin: 07/31/21 06:36 Dose: 40 mg Documented by: Sodium Chloride (Sodium Chloride 0.9% 10 Ml Syringe) 10 ml FLUSH ASDIRECTED PRN PRN Reason: Keep Vein Open Last Admin: 07/30/21 07:47 Dose: 10 ml Documented by: Discontinued Medications Remdesivir 200 mg/ Sodium (Chloride) 250 mls @ 250 mls/hr IV ONETIME ONE Stop: 07/30/21 11:58 Last Admin: 07/30/21 15:31 Dose: Not Given Documented by: Remdesivir 200 mg/ Sodium (Chloride) 250 mls @ 250 mls/hr IV ONETIME ONE Stop: 07/30/21 15:59 Last Admin: 07/30/21 15:22 Dose: 250 mls/hr Documented by: Ondansetron HCl (Ondansetron 4 Mg/2 Ml Sdv) 4 mg IVPUSH ONETIME ONE Stop: 07/30/21 07:50 Last Admin: 07/30/21 17:15 Dose: Not Given Documented by: Ondansetron HCl (Ondansetron 4 Mg Tab.Dis) 4 mg PO ONETIME ONE Stop: 07/30/21 07:55 Last Admin: 07/30/21 07:58 Dose: 4 mg Documented by: Potassium Chloride (Potassium Chloride 20 Meq Tab.Er) 40 meq PO ONETIME ONE Stop: 07/30/21 15:15 Last Admin: 07/30/21 16:40 Dose: 40 meq Documented by: - Exam Quality Assessment: Supplemental Oxygen (The nasal cannula 1 to 2 L.), DVT Prophylaxis General: Alert HEENT: Pupils Equal Lungs: Decreased Breath Sounds Cardiovascular: Regular Rate GI/Abdominal Exam: Normal Bowel Sounds, Soft, Non-Tender Extremities: Normal Inspection, No Pedal Edema Skin: Warm, Dry Neurological: No New Focal Deficit - Patient Data Lab Results Last 24 hrs: Laboratory Results - last 24 hr 07/31/21 07/31/21 07/31/21 Range/Units 05:45 05:45 05:45 WBC 2.83 L (3.98-10.04) K/mm3 RBC 4.57 (3.98-5.22) M/mm3 Hgb 12.4 (11.2-15.7) gm/dl Hct 38.9 (34.1-44.9) % MCV 85.1 (79.4-94.8) fl MCH 27.1 (25.6-32.2) pg MCHC 31.9 L (32.2-35.5) g/dl RDW Std Deviation 44.8 (36.4-46.3) fL Plt Count 187 (182-369) K/mm3 MPV 9.5 (9.4-12.3) fl Neut % (Auto) 76.6 H (34.0-71.1) % Lymph % (Auto) 13.8 L (19.3-51.7) % [place] % (Auto) 8.5 (4.7-12.5) % Eos % (Auto) 0 L (0.7-5.8) Baso % (Auto) 0.4 (0.1-1.2) % Neut # (Auto) 2.17 (1.56-6.13) K/mm3 Lymph # (Auto) 0.39 L (1.18-3.74) K/mm3 [place] # (Auto) 0.24 (0.24-0.36) K/mm3 Eos # (Auto) 0.00 L (0.04-0.36) K/mm3 Baso # (Auto) 0.01 (0.01-0.08) K/mm3 D-Dimer, Quantitative 1.05 H (0.19-0.50) mg/L Sodium 140 (136-145) mEq/L Potassium 4.3 (3.5-5.1) mEq/L Chloride 102 (98-107) mEq/L Carbon Dioxide 28 (21-32) mEq/L Anion Gap 14.3 (5-15) BUN 9 (7-18) mg/dL Creatinine 0.7 (0.55-1.02) mg/dL Est Cr Clr Drug Dosing 82.01 mL/min Estimated GFR (MDRD) > 60 (>60) mL/min BUN/Creatinine Ratio 12.9 L (14-18) Glucose 155 H (70-99) mg/dL Calcium 8.2 L (8.5-10.1) mg/dL Phosphorus 2.9 (2.6-4.7) mg/dL Magnesium 2.0 (1.8-2.4) mg/dL Total Bilirubin 0.6 (0.2-1.0) mg/dL AST 40 H (15-37) U/L ALT 52 (14-59) U/L Alkaline Phosphatase 83 (46-116) U/L C-Reactive Protein 16.7 H* (<1.0) mg/dL Total Protein 5.9 L (6.4-8.2) g/dl Albumin 2.8 L (3.4-5.0) g/dl Globulin 3.1 gm/dL Albumin/Globulin Ratio 0.9 L (1-2) Result Diagrams: 07/31/21 05:45 07/31/21 05:45 Sepsis Event Note - Evaluation Sepsis Screening Result: No Definite Risk - Focused Exam Vital Signs: Vital Signs Temp Pulse Resp BP Pulse Ox 07/31/21 08:49 71 20 116/63 90 L 07/31/21 05:02 98.4 F 66 16 116/55 L 94 L 07/30/21 23:56 97.9 F 69 17 105/86 90 L 07/30/21 23:33 92 L - Problem List Review Problem List Initiated/Reviewed/Updated: Yes - Plan Plan:: 56-year-old female with history of asthma admitted for COVID-19 pneumonia. Patient was fully vaccinated with Pfizer vaccine in November and December. 1. Acute hypoxemic respiratory failure in the setting of COVID-19 pneumonitis. Continue conventional COVID-19 protocol. On mild supplemental oxygen. RT consult. Bronchodilators as necessary. Encourage proning and lying on her side along with incentive spirometry. Steroids, antivirals Is doing well within the next 36 to 48 hours and still only requiring minimal oxygen, will entertain discharge to home on home O2. 2. Acute COVID-19 pneumonitis. Continue COVID-19 protocol. Steroid and antivirals. For now does not require advanced treatments. Vitamin replacement. Intermittent check of inflammatory markers. Hypercoagulable prophylaxis. 3. Hypokalemia. Resolved. CODE STATUS: Full code. Hypercoagulable prophylaxis with Lovenox.
[2021-07-31] MEDS: REMDESIVIR 100 MG in Sodium Chloride 0.9% 100 ML IV SCH (12:45)
[2021-07-31] MEDS: Acetaminophen 325 MG Tab PO PRN (13:54)
[2021-07-31] MEDS ORDERED: guaiFENesin/Dextromethorphan 100-10 MG/5 ML Soln 5 ML Cup PO PRN (21:16)
[2021-08-01] MEDS: Pantoprazole 40 MG Tab.CR PO SCH (05:40)
--- NOTE | 2021-08-01 08:24 | PCM.PN ---
- General Info Date of Service: 08/01/21 Admission Dx/Problem (Free Text): Admission Diagnosis/Problem Admission Diagnosis/Problem Hypoxia Subjective Update: Patient states she feels rather status quo. No new concerns or questions. Still has a cough. Was able to prone for a little while throughout the day and throughout the night but did not sleep very well overall. No fever chills. No other constitutional symptoms. Taking p.o. without complication. Able to ambulate and void without complication. RT able to wean down to half a liter to 1 L of supplemental oxygen. - Patient Data Vitals - Most Recent: Last Vital Signs Temp 97.0 F 08/01/21 04:19 Pulse 64 08/01/21 04:19 Resp 18 08/01/21 04:19 BP 107/53 L 08/01/21 04:19 Pulse Ox 91 L 08/01/21 05:54 Weight - Most Recent: 215 lb 6.4 oz I&O - Last 24 Hours: Intake & Output 07/31/21 08/01/21 08/01/21 22:59 06:59 14:59 Intake Total 998 500 Output Total 950 Balance 48 500 Med Orders - Current: Current Medications Acetaminophen (Acetaminophen 325 Mg Tab) 650 mg PO Q4H PRN PRN Reason: Pain (Mild 1-3)/fever Last Admin: 07/31/21 13:54 Dose: 325 mg Documented by: Albuterol (Albuterol 0.083% 2.5 Mg/3 Ml Neb Soln) 2.5 mg NEB Q2H PRN PRN Reason: Shortness Of Breath/wheezing Albuterol (Albuterol 6.7 Gm Inhaler) 0 gm INH Q4H PRN PRN Reason: Shortness of Breath Albuterol/Ipratropium (Albuterol/Ipratropium 3.0-0.5 Mg/3 Ml Neb Soln) 3 ml NEB Q4H PRN PRN Reason: Shortness Of Breath/wheezing Aspirin (Aspirin 81 Mg Tab.Ec) [facility] [place] Admin: 07/31/21 09:05 Dose: 81 mg Documented by: Cetirizine HCl (Cetirizine 10 Mg Tab) 10 mg PO DAILY PRN PRN Reason: Allergies Citalopram Hydrobromide (Citalopram 20 Mg Tab) 40 mg PO DAILY [facility] Last Admin: 07/31/21 09:05 Dose: 40 mg Documented by: Dexamethasone (Dexamethasone 4 Mg Tab) 6 mg PO DAILY [facility] Stop: 08/08/21 09:01 Last Admin: 07/31/21 09:05 Dose: 6 mg Documented by: Enoxaparin Sodium (Enoxaparin 40 Mg/0.4 Ml Syringe) 40 mg SUBCUT DAILY [facility] Last Admin: 07/31/21 09:00 Dose: 40 mg Documented by: Guaifenesin/Phenylephrine HCl (Guaifenesin/Dextromethorphan 100-10 Mg/5 Ml Soln 5 Ml Cup) 10 ml PO QID PRN PRN Reason: Cough Remdesivir 100 mg/ Sodium (Chloride) 100 mls @ 100 mls/hr IV Q24H [facility] Stop: 08/03/21 12:59 Last Admin: 07/31/21 12:45 Dose: 100 mls/hr Documented by: Ondansetron HCl (Ondansetron 4 Mg/2 Ml Sdv) 4 mg IV Q6H PRN PRN Reason: Nausea/Vomiting Pantoprazole Sodium (Pantoprazole 40 Mg Tab.Cr) 40 mg PO ACBREAKFAST [facility] Last Admin: 08/01/21 05:40 Dose: 40 mg Documented by: Sodium Chloride (Sodium Chloride 0.9% 10 Ml Syringe) 10 ml FLUSH ASDIRECTED PRN PRN Reason: Keep Vein Open Last Admin: 07/30/21 07:47 Dose: 10 ml Documented by: Discontinued Medications Sodium Chloride (Normal Saline) 1,000 mls @ 999 mls/hr IV ONETIME [facility] Last Admin: 07/30/21 09:34 Dose: 999 mls/hr Documented by: Remdesivir 200 mg/ Sodium (Chloride) 250 mls @ 250 mls/hr IV ONETIME ONE Stop: 07/30/21 11:58 Last Admin: 07/30/21 15:31 Dose: Not Given Documented by: Remdesivir 200 mg/ Sodium (Chloride) 250 mls @ 250 mls/hr IV ONETIME ONE Stop: 07/30/21 15:59 Last Admin: 07/30/21 15:22 Dose: 250 mls/hr Documented by: Ondansetron HCl (Ondansetron 4 Mg/2 Ml Sdv) 4 mg IVPUSH ONETIME ONE Stop: 07/30/21 07:50 Last Admin: 07/30/21 17:15 Dose: Not Given Documented by: Ondansetron HCl (Ondansetron 4 Mg Tab.Dis) 4 mg PO ONETIME ONE Stop: 07/30/21 07:55 Last Admin: 07/30/21 07:58 Dose: 4 mg Documented by: Potassium Chloride (Potassium Chloride 20 Meq Tab.Er) 40 meq PO ONETIME ONE Stop: 07/30/21 15:15 Last Admin: 07/30/21 16:40 Dose: 40 meq Documented by: - Exam Quality Assessment: Supplemental Oxygen (Minimal supplemental oxygen by nasal cannula) General: Alert Neck: Supple Lungs: Clear to Auscultation, Normal Respiratory Effort Cardiovascular: Regular Rate GI/Abdominal Exam: Normal Bowel Sounds, Soft, Non-Tender Extremities: Normal Inspection, No Pedal Edema Skin: Warm, Dry - Patient Data Result Diagrams: 07/31/21 05:45 07/31/21 05:45 Sepsis Event Note - Evaluation Sepsis Screening Result: No Definite Risk - Focused Exam Vital Signs: Vital Signs Temp Pulse Resp BP Pulse Ox Pulse Ox 08/01/21 05:54 91 L 08/01/21 04:19 97.0 F 64 18 107/53 L 92 L 08/01/21 00:14 97.0 F 66 20 134/91 H 90 L 07/31/21 21:30 91 L - Problem List Review Problem List Initiated/Reviewed/Updated: Yes - My Orders Last 24 Hours: My Active Orders 07/31/21 21:16 Dextromethorphan/guaiFENesin [Robitussin DM] 10 ml PO QID PRN 08/01/21 08:12 Evaluate for Home Oxygen [RT Evaluate for Home Oxygen] [RC] Click to Edit - Plan Plan:: 56-year-old female with history of asthma admitted for COVID-19 pneumonia. Patient was fully vaccinated with Pfizer vaccine in November and December. 1. Acute hypoxemic respiratory failure in the setting of COVID-19 pneumonitis. Continue conventional COVID-19 protocol. On mild supplemental oxygen. RT consult for home O2 qualification. Bronchodilators as necessary. Encourage proning and lying on her side along with incentive spirometry. Steroids, antivirals Patient would like to stay in the hospital today to try and completely wean off oxygen. If unable to do so she is agreeable with plan for discharge tomorrow on home oxygen. Chest x-ray today for Covid maintenance examination for review. 2. Acute COVID-19 pneumonitis. Continue COVID-19 protocol. Steroid and antivirals. For now does not require advanced treatments. Vitamin replacement. Intermittent check of inflammatory markers. Hypercoagulable prophylaxis. 3. Hypokalemia. Resolved. CODE STATUS: Full code. Hypercoagulable prophylaxis with Lovenox.
[2021-08-01] MEDS: Dexamethasone 4 MG Tab PO SCH (08:43)
[2021-08-01] MEDS: Aspirin 81 MG Tab.EC PO SCH (08:43)
[2021-08-01] MEDS: Citalopram 20 MG Tab PO SCH (08:43)
[2021-08-01] MEDS: Enoxaparin 40 MG/0.4 ML Syringe SUBCUT SCH (08:44)
--- NOTE | 2021-08-01 09:56 | CR ---
Chest: Frontal view of the chest was obtained. Comparison: Prior chest x-ray of 07/30/21. Increased density is seen throughout both sides of the chest which is worse within both lung bases. Findings are felt to be fairly stable from prior exam. Heart size and mediastinum are unchanged. Bony structures show nothing acute. Impression: 1. Increased density within both sides of the chest. Fairly stable from most recent chest x-ray. 2. Nothing acute is otherwise appreciated. Diagnostic code #3
[2021-08-01] MEDS ORDERED: Sodium Chloride 0.9% 0 ML ONE (12:21)
[2021-08-01] MEDS: REMDESIVIR 100 MG in Sodium Chloride 0.9% 100 ML IV SCH (12:29)
[2021-08-02] MEDS: Pantoprazole 40 MG Tab.CR PO SCH (05:08)
--- NOTE | 2021-08-02 08:12 | PCM.DCSUM1 ---
Discharge Summary - Hospital Course Free Text/Narrative:: 56-year-old female with history of asthma admitted for COVID-19 pneumonia. Patient was fully vaccinated with Pfizer vaccine in November and December. 1. Acute hypoxemic respiratory failure in the setting of COVID-19 pneumonitis. Patient received conventional COVID-19 protocol. Only required mild supplemental oxygen. Required supplemental O2 still with activity however with a low flow rate. Patient was evaluated for home O2 prior to discharge. She does qualify. She received bronchodilators as necessary. She was encouraged to prone. She did periodically throughout the day as well as at night. Patient given high-dose dexamethasone which was transitioned to Solu-Medrol and then to prednisone on an outpatient taper. She received 4 doses of remdesivir. Maintenance chest x-ray day before discharge showed stable Covid pneumonitis without any evidence of worsening disease. 2. Acute COVID-19 pneumonitis. Continue COVID-19 protocol. Steroid and antivirals. For now does not require advanced treatments. Vitamin replacement. Intermittent check of inflammatory markers. Hypercoagulable prophylaxis achieved with Lovenox while in the hospital. 3. Hypokalemia. Resolved. CODE STATUS: Full code. Hypercoagulable prophylaxis with Lovenox. HPI Initial Comments: History of Present Illness Initial Comments - Free Text/Narative: 56-year-old female with history of asthma presents to the emergency department with 5-day history of fatigue, chills, and 3-day history of shortness of breath. Patient was vaccinated against COVID-19 with Pfizer vaccine in November and December of this year. Patient for started feeling muscle aches last Saturday, July 23 and then by Saturday she started feeling chills, without fever, fatigue and worsening achiness. Patient comes in today for worsening cough and shortness of breath. In the emergency department her oxygen saturations were 85% on room air. This did increase with 2 L nasal cannula. Patient was then recommended for admission. 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 - Related Data Allergies/Adverse Reactions: Allergies Allergy/AdvReac Type Severity Reaction Status Date / Time Penicillins Allergy Swelling Verified 07/30/21 07:30 and rash Sulfa (Sulfonamide Allergy Rash Verified 07/30/21 07:30 Antibiotics) Home Medications: Home Meds Albuterol Sulfate [Albuterol Sulfate HFA] 2 puff INH Q4H PRN 04/15/14 [History] Aspirin [Ravi Chewable] 1 tab.chew PO QAM 04/15/14 [History] Calcium Carb/Vitamin D3/Vit K1 [Calcium + D Soft Chewable Tab] 1 tab.chew PO DAILY 04/15/14 [History] Cetirizine HCl [Zyrtec] 10 mg PO DAILY PRN 04/15/14 [History] Cholecalciferol (Vitamin D3) [Vitamin D3] 4,000 unit PO QAM 04/15/14 [History] Krill Oil/[place]-3/Dha/Epa [[place]-3 Krill Oil Softgel] 665 mg PO QAM 04/15/14 [History] Lysine 500 mg PO PRN 04/15/14 [History] Pantoprazole Sodium 1 tab PO QAM 04/15/14 [History] Ubidecarenone [Coq-10] 200 mg PO QAM 04/15/14 [History] Escitalopram [Lexapro] 20 mg PO DAILY 07/30/21 [History] Past Medical History - Past Health History Medical/Surgical History: Denies Medical/Surgical History Respiratory History: Reports: Asthma Gastrointestinal History: Reports: GERD Neurological History: Reports: None Endocrine/Metabolic History: Reports: Obesity/BMI 30+, Vitamin D Deficiency - Infectious Disease History Infectious Disease History: Reports: Novel Coronavirus - Past Surgical History GI Surgical History: Reports: None Endocrine Surgical History: Reports: None Neurological Surgical History: Reports: None Social & Family History - Family History Family Medical History: No Pertinent Family History - Tobacco Use Tobacco Use Status *Q: Never Tobacco User Second Hand Smoke Exposure: Yes - Caffeine Use Caffeine Use: Reports: Coffee Caffeine Use Comment: 1 cup/day - Recreational Drug Use Recreational Drug Use: No H&P Review of Systems - Review of Systems: Review Of Systems: Comprehensive ROS is negative, except as noted in HPI. Exam - Exam Exam: See Below - Vital Signs Vital Signs: Last Vital Signs Temp 97.2 F 07/30/21 15:55 Pulse 81 07/30/21 15:55 Resp 16 07/30/21 15:55 BP 133/64 07/30/21 15:55 Pulse Ox 92 L 07/30/21 15:55 Weight: 221 lb 11.2 oz - Exam Quality Assessment: Supplemental Oxygen General: Alert, Oriented, 4 HEENT: Conjunctiva Clear, EACs Clear, EOMI, Hearing Intact, Mucosa Moist & Rex Neck: Supple, Trachea Midline, 2 Lungs: Normal Respiratory Effort, Crackles (Bibasilar up to mid lung jones) Cardiovascular: Regular Rate, Regular Rhythm GI/Abdominal Exam: Normal Bowel Sounds, Soft, Non-Tender, No Organomegaly, No Distention, No Abnormal Bruit, No Mass Extremities: Normal Inspection, Normal Range of Motion, Non-Tender, No Pedal Edema, Normal Capillary Refill Skin: Warm, Dry, Intact Neurological: No: Cranial Nerves Intact (Minimal right-sided facial droop) Neuro Extensive - Mental Status: Alert, Oriented x3, Normal Mood/Affect, Normal Cognition, Memory Intact Psychiatric: Alert, Normal Affect, Normal Mood - Discharge Data Discharge Date: 08/02/21 Discharge Disposition: Home, Self-Care 01 Condition: Good - Referral to Home Health Primary Care Physician: Sanjuana Peñaloza MD - Patient Instructions Diet: Usual Diet as Tolerated Activity: As Tolerated Driving: May Drive Today Other/Special Instructions: Activity and diet are as tolerated. Continue taking medications as indicated at time of discharge. Prednisone 60 mg daily x5 days then begin taper. Wear supplemental oxygen if becoming symptomatic with shortness of breath or lightheadedness and dizziness. Report to primary care physician within 1 to 2 weeks for evaluation. If you experience any signs or symptoms that warranted this admission please do not hesitate to call your primary care physician or present to an emergency department for an immediate evaluation. - Discharge Plan *PRESCRIPTION DRUG MONITORING PROGRAM REVIEWED*: Not Applicable *COPY OF PRESCRIPTION DRUG MONITORING REPORT IN PATIENT MIGUEL: Not Applicable Prescriptions/Med Rec: predniSONE 60 mg PO WITHBREAKFAST 5 Days #30 tab predniSONE [Prednisone] See Taper PO QAM 12 Days tab.ds.pk Home Medications: Home Meds Albuterol Sulfate [Albuterol Sulfate HFA] 2 puff INH Q4H PRN 04/15/14 [History] Aspirin [Ravi Chewable Aspirin] 1 tab.chew PO QAM 04/15/14 [History] Calcium Carb/Vitamin D3/Vit K1 [Calcium + D Soft Chewable Tab] 1 tab.chew PO DAILY 04/15/14 [History] Cetirizine HCl [Zyrtec] 10 mg PO DAILY PRN 04/15/14 [History] Cholecalciferol (Vitamin D3) [Vitamin D3] 4,000 unit PO QAM 04/15/14 [History] Krill Oil/[place]-3/Dha/Epa [[place]-3 Krill Oil Softgel] 665 mg PO QAM 04/15/14 [History] Lysine 500 mg PO PRN 04/15/14 [History] Pantoprazole Sodium 1 tab PO QAM 04/15/14 [History] Ubidecarenone [Coq-10] 200 mg PO QAM 04/15/14 [History] Escitalopram [Lexapro] 20 mg PO DAILY 07/30/21 [History] predniSONE 60 mg PO WITHBREAKFAST 5 Days #30 tab 08/02/21 [Rx] predniSONE [Prednisone] See Taper PO QAM 12 Days tab.ds.pk 08/02/21 [Rx] Maintain SpO2% greater than: 92 Patient Handouts: COVID-19, Home Oxygen Use, Adult, COVID-19: How to Protect Yourself and Others - [facility] Forms: ED Department Discharge Referrals: Sanjuana Peñaloza MD [Primary Care Provider] - 08/10/21 3:00 pm (Please arrive at 3:00 p.m. for check in.) - Discharge Summary/Plan Comment DC Time >30 min.: Yes Total # of Minutes for Discharge Time: 35 - General Info Date of Service: 08/02/21 Admission Dx/Problem (Free Text: Admission Diagnosis/Problem Admission Diagnosis/Problem Hypoxia Subjective Update: No acute events overnight. No new nursing concerns. Patient has no concerns about going home today. Denies any shortness of breath, chest pain, chest pressure or pleurisy. No constitutional symptoms otherwise. Tolerating p.o. - Patient Data Vitals - Most Recent: Last Vital Signs Temp 97.3 F 08/02/21 04:19 Pulse 57 L 08/02/21 05:02 Resp 16 08/02/21 04:19 BP 127/76 08/02/21 04:19 Pulse Ox 91 L 08/02/21 05:02 Weight - Most Recent: 215 lb 1.6 oz I&O - Last 24 hours: Intake & Output 08/01/21 08/02/21 08/02/21 22:59 06:59 14:59 Intake Total 1200 500 Output Total 550 Balance 650 500 Med Orders - Current: Current Medications Acetaminophen (Acetaminophen 325 Mg Tab) 650 mg PO Q4H PRN PRN Reason: Pain (Mild 1-3)/fever Last Admin: 07/31/21 13:54 Dose: 325 mg Documented by: Albuterol (Albuterol 0.083% 2.5 Mg/3 Ml Neb Soln) 2.5 mg NEB Q2H PRN PRN Reason: Shortness Of Breath/wheezing Albuterol (Albuterol 6.7 Gm Inhaler) 0 gm INH Q4H PRN PRN Reason: Shortness of Breath Albuterol/Ipratropium (Albuterol/Ipratropium 3.0-0.5 Mg/3 Ml Neb Soln) 3 ml NEB Q4H PRN PRN Reason: Shortness Of Breath/wheezing Aspirin (Aspirin 81 Mg Tab.Ec) 81 mg PO QAM [facility] Last Admin: 08/01/21 08:43 Dose: 81 mg Documented by: Cetirizine HCl (Cetirizine 10 Mg Tab) 10 mg PO DAILY PRN PRN Reason: Allergies Citalopram Hydrobromide (Citalopram 20 Mg Tab) 40 mg PO DAILY [facility] Last Admin: 08/01/21 08:43 Dose: 40 mg Documented by: Dexamethasone (Dexamethasone 4 Mg Tab) 6 mg PO DAILY [facility] Stop: 08/08/21 09:01 Last Admin: 08/01/21 08:43 Dose: 6 mg Documented by: Enoxaparin Sodium (Enoxaparin 40 Mg/0.4 Ml Syringe) 40 mg SUBCUT DAILY [facility] Last Admin: 08/01/21 08:44 Dose: 40 mg Documented by: Guaifenesin/Phenylephrine HCl (Guaifenesin/Dextromethorphan 100-10 Mg/5 Ml Soln 5 Ml Cup) 10 ml PO QID PRN PRN Reason: Cough Remdesivir 100 mg/ Sodium (Chloride) 100 mls @ 100 mls/hr IV Q24H [facility] Stop: 08/03/21 12:59 Last Admin: 08/01/21 12:29 Dose: 100 mls/hr Documented by: Ondansetron HCl (Ondansetron 4 Mg/2 Ml Sdv) 4 mg IV Q6H PRN PRN Reason: Nausea/Vomiting Pantoprazole Sodium (Pantoprazole 40 Mg Tab.Cr) 40 mg PO ACBREAKFAST [facility] Last Admin: 08/02/21 05:08 Dose: 40 mg Documented by: Sodium Chloride (Sodium Chloride 0.9% 10 Ml Syringe) 10 ml FLUSH ASDIRECTED PRN PRN Reason: Keep Vein Open Last Admin: 07/30/21 07:47 Dose: 10 ml Documented by: Discontinued Medications Sodium Chloride (Normal Saline) 1,000 mls @ 999 mls/hr IV ONETIME [facility] Last Admin: 07/30/21 09:34 Dose: 999 mls/hr Documented by: Remdesivir 200 mg/ Sodium (Chloride) 250 mls @ 250 mls/hr IV ONETIME ONE Stop: 07/30/21 11:58 Last Admin: 07/30/21 15:31 Dose: Not Given Documented by: Remdesivir 200 mg/ Sodium (Chloride) 250 mls @ 250 mls/hr IV ONETIME ONE Stop: 07/30/21 15:59 Last Admin: 07/30/21 15:22 Dose: 250 mls/hr Documented by: Sodium Chloride (Normal Saline) Confirm Administered Dose 100 mls @ as directed .ROUTE .STK-MED ONE Stop: 08/01/21 12:22 Last Admin: 08/01/21 12:44 Dose: Not Given Documented by: Ondansetron HCl (Ondansetron 4 Mg/2 Ml Sdv) 4 mg IVPUSH ONETIME ONE Stop: 07/30/21 07:50 Last Admin: 07/30/21 17:15 Dose: Not Given Documented by: Ondansetron HCl (Ondansetron 4 Mg Tab.Dis) 4 mg PO ONETIME ONE Stop: 07/30/21 07:55 Last Admin: 07/30/21 07:58 Dose: 4 mg Documented by: Potassium Chloride (Potassium Chloride 20 Meq Tab.Er) 40 meq PO ONETIME ONE Stop: 07/30/21 15:15 Last Admin: 07/30/21 16:40 Dose: 40 meq Documented by: - Exam Quality Assessment: Denies: Supplemental Oxygen (At rest) HEENT: Reports: Pupils Equal, EOMI Neck: Reports: Supple Lungs: Reports: Clear to Auscultation, Normal Respiratory Effort Cardiovascular: Reports: Regular Rate GI/Abdominal Exam: Normal Bowel Sounds, Soft, Non-Tender Extremities: Normal Inspection, Normal Range of Motion Skin: Reports: Warm, Dry
[2021-08-02] MEDS: Enoxaparin 40 MG/0.4 ML Syringe SUBCUT SCH (10:17)
[2021-08-02] MEDS: Dexamethasone 4 MG Tab PO SCH (10:18)
[2021-08-02] MEDS: Citalopram 20 MG Tab PO SCH (10:18)
[2021-08-02] MEDS: Aspirin 81 MG Tab.EC PO SCH (10:25)
[2021-08-02] MEDS: REMDESIVIR 100 MG in Sodium Chloride 0.9% 100 ML IV SCH (11:27)
== END 2021-08-02 13:50 | disposition home or self-care (01) | DRG 137 ==
LOC: JD.ED 07:08 → JD.MS 10:11
PROVIDERS: ADMIT Family Medicine; ATTEND Family Medicine
PROC: 8E0ZXY6 Isolation (ICD-10-PCS; principal; 2021-07-30)
PROC: 3E0DX3Z Introduction of Anti-inflammatory into Mouth and Pharynx, External Approach (ICD-10-PCS; principal; 2021-07-30)
PROC: XW033E5 Introduction of Remdesivir Anti-infective into Peripheral Vein, Percutaneous Approach, New Technology Group 5 (ICD-10-PCS; principal; 2021-07-30)
DX: U07.1 COVID-19 (principal); J12.82 Pneumonia due to coronavirus disease 2019; J96.01 Acute respiratory failure with hypoxia; E87.6 Hypokalemia; J45.909 Unspecified asthma, uncomplicated; K21.9 Gastro-esophageal reflux disease without esophagitis; E66.9 Obesity, unspecified; R74.8 Abnormal levels of other serum enzymes; E55.9 Vitamin D deficiency, unspecified; Z88.0 Allergy status to penicillin; Z88.2 Allergy status to sulfonamides; Z79.82 Long term (current) use of aspirin; Z79.899 Other long term (current) drug therapy; Z86.16 Personal history of COVID-19
CPT/HCPCS: 36415; 36600; 71045; 71045-26; 80053; 82803; 83735; 84100; 85025; 85379; 86140; 93005; 94761; 94762; 99223; 99232; 99239; 99285-25; A9270-GY; J1650; J7030; J7050; J8540